=== PATIENT | female | born 1935 | race Caucasian/White ===

== ENCOUNTER → 2017-02-17 | Outpatient (CLI) | payer OTHER, MEDICARE ==
[~2017-02-17] MED LIST: ADVAIR 250-501 EACH INH; ALTACE10 MG PO; AMARYL4 MG PO; AMITRIPTYLINE; AMITRIPTYLINE H10 M1 PO; ARICEPT; ARICEPT 5 MG TAB5 MG PO; ASPIRIN81 M2 PO; ATORVASTATIN CA20 MG PO; AUGMENTIN 875875 MG PO; BRETHINE2.5 MG PO; CALCIUM 600+D1 EAC4 PO; CLONAZEPAM 0.50.5 M1 PO; GABAPENTIN 100100 MG PO; GLUCOPHAGE1000 MG PO; HUMALOG100 UNIT/1; HUMALOG100 UNIT/1 SUBQ; LEVEMIR SUBQ; LEVOTHYROXIN0.112 M1 PO; LEVOXYL75 MCG PO; LISINOPRIL10 MG PO; OMEPRAZOLE10 MG PO; PANTOPRAZOLE SO40 M1 PO; PREMARIN0.3 MG; PROTONIX40 M1 PO; SERTRALINE HCL50 MG PO; TOPROL XL100 MG PO; TRAZODONE 150150 M1 PO; TRAZODONE HCL50 MG PO; TRICOR145 MG PO; ZOCOR
== END ==
LOC: RAD 09:55
DX: M47.896 Other spondylosis, lumbar region (principal); M54.5 Low back pain; R91.8 Other nonspecific abnormal finding of lung field